=== PATIENT | female | born 1945 | race Caucasian/White ===

== ENCOUNTER 2018-06-12 16:30 | Inpatient (IN) ==
[2018-06-12 18:13] LABS: BASO# 0.01 X1000 (0.0-0.2); BASO% 0.1 % (0.0-0.8); EOS# 0.07 X1000 (0.0-0.7); EOS% 0.6 % (0.0-10.0); HEMATOCRIT 37.8 % (37.0-47.0); HEMOGLOBIN 12.9 g/dL (12.0-16.0); IMM GRAN# 0.03 X1000 (0.0-0.04); IMM GRAN% 0.2 % (0.0-0.5); LYMPH# 1.81 X1000 (1.2-3.4); LYMPH% 14.7 % (20.5-51.1); MCH 29.1 PG (27-31); MCHC 34.1 g/dL (33-37); MCV 85.3 FL (81-99); MONO# 1.23 X1000 (0.11-0.59); MPV 9.2 FL (7.4-10.4); NEUT# 9.13 X1000 (1.4-6.5); NEUT% 74.4 % (42.2-75.2); PLT 231 X1000 (130-400); RBC 4.43 XMIL (4.2-5.4); RDW 12.7 % (11.5-14.5); WBC 12.28 X1000 (4.8-10.8)
[2018-06-12] MEDS ORDERED: MORPHINE IV ONE (18:36)
[2018-06-12] MEDS ORDERED: ZOFRAN IV ONE (18:36)
--- NOTE | 2018-06-12 18:38 | PROVIDER DOCUMENTATION ---
This chart was entered by Jacqueline López Scribe, acting as scribe for Suzette Reina MD. HPI-Abdominal Pain/GI Problem - General Source: patient - History of Present Illness-ABD Nature of Presenting Problems: 73 yowf presents to the ed with c/o "I have a hernia and I want surgery to take it out today" . pt sts she is dr kilgore pt and she will not leave the hospital till hernia is removed. pt also c/o constipation, chills, nausea. pt has bags packed in room for extended stay. pt on exam is nontoxic in appearance Abdominal Pain Onset Location: reports: periumbilical Pain Radiation: reports: no radiation Quality of Pain: reports: aching Severity in ED: reports: moderate Onset/Duration: reports: other (years) Timing: reports: still present Activities at Onset: reports: light activity Exposure to sick contacts?: No Modifying Factors: improves with: nothing Associated Symptoms: reports: constipation, nausea. denies: back/neck pain, chest pain, cough, diarrhea, fatigue, fever/chills, headaches, shortness of breath, syncope, vomiting, weakness Last BM: last night Dark Stools Present?: reports: none noticed Rectal Bleeding: reports: none # of Diarrhea Episodes: 0 Rectal Pain: reports: none # of Vomiting Episodes: 0 Emesis Description: reports: none Bruising or Bleeding Gums?: No Similar Symptoms Previously?: Yes Recently seen or treated by another doctor?: Yes (has seen dr kilgore) <Suzette Reina - Last Filed: 06/12/18 18:37> <Rupesh Holloway - Last Filed: 06/16/18 09:26> - General Chief Complaint: Abdominal Pain Stated Complaint: N/V, BACK PAIN Time Seen by Provider: 06/12/18 17:05 Allergies/Adverse Reactions: Patient Allergies Allergy/AdvReac Type Severity Reaction Status Date / Time ciprofloxacin [From Cipro] Allergy Intermediate HIVES Verified 07/19/17 19:32 Sulfa (Sulfonamide Allergy Unknown Verified 07/19/17 19:32 Antibiotics) Home Medications: Home Medication List Medication Instructions Recorded Confirmed Last Taken Type Alprazolam [Xanax] 1 mg PO BID PRN PRN 08/03/13 06/12/18 07/18/17 08:00 History Fluticasone 50 Mcg Nasal [place] 1 spray MANDO DAILY #1 bottle 03/21/16 06/12/18 07/01/17 Rx [Flonase] Telmisartan 40 mg PO DAILY 07/22/17 06/12/18 Unknown History Omeprazole [Prilosec] 40 mg PO DAILY@0700 capsule 07/23/17 06/12/18 Unknown Rx Melatonin/Pyridoxine HCl (B6) 5 mg PO QHS PRN 06/12/18 06/13/18 Unknown History [Melatonin 5 mg Tablet] Review of Systems - Adult - REVIEW OF SYSTEMS - ADULT Constitutional: denies: chills, fever Eyes: reports: no symptoms reported Ears, Nose, Mouth & Throat: reports: no symptoms reported Cardiovascular: denies: chest pain, palpitations Respiratory: denies: cough, shortness of breath, wheezing Gastrointestinal: reports: see HPI, abdominal pain, constipation, nausea. denies: diarrhea, poor appetite, vomiting Genitourinary: reports: no symptoms reported Musculoskeletal: denies: back pain, neck pain Integumentary: reports: no symptoms reported Neurological: reports: no symptoms reported Psychiatric: reports: no symptoms reported Endocrine: reports: no symptoms reported Hematologic/Lymphatic: reports: no symptoms reported Allergic/Immunologic: reports: no symptoms reported All Other Systems: Reviewed and Negative <Suzette Reina - Last Filed: 06/12/18 18:37> Past History - Adult - PAST MEDICAL HISTORY-ADULT Review of Records: reports: Old Records Reviewed, Nursing Assessment Review, Medications Reviewed, Social history reviewed & non-contributory. Major Childhood Illnesses: reports: denies history Cardiovascular: reports: HTN, murmur Respiratory: reports: denies history Gastrointestinal: reports: diverticulosis, GERD, polyps, other (hernia) Obstetrical/Gynecological: reports: denies history Genitourinary: reports: denies history Musculoskeletal: reports: denies history Neurological: reports: denies history Psychiatric: reports: denies history Endocrine/Immune: reports: denies history Other Conditions: reports: denies history - PRIOR SURGERIES/PROCEDURES Surgical/Procedure History: reports: cholecystectomy, hysterectomy, other (sinus,gum repaired) - PRIOR HOSPITALIZATIONS Prior Hospitalizations: reports: none - IMMUNIZATION STATUS Childhood Immunizations: See Nurse Assessment Flu Vaccine: See Nurse Assessment - FAMILY HISTORY Family History: reviewed, not pertinent - SOCIAL HISTORY Smoking: denies Substance Use: denies Living Situation: family <Suzette Reina - Last Filed: 06/12/18 18:37> Physical Exam-General - PHYSICAL EXAM-ADULT Initial Vital Signs Reviewed: Yes - CONSTITUTIONAL General Appearance: appears well, alert, no apparent distress - EYES Eyes: PERRL/EOMI, pink conjunctivae - HEAD, EARS, NOSE, MOUTH & THROAT HENMT: normocephalic/atraumatic, moist mucous membranes, normal ENT inspection - NECK Neck: non-tender, full range of motion, supple, normal inspection - RESPIRATORY Respiratory: chest non-tender, lungs clear, normal breath sounds - CARDIOVASCULAR Cardiovascular: normal peripheral pulses, tachycardia (126) - GASTROINTESTINAL (ABDOMEN) Abdominal Exam: normal bowel sounds, soft, guarding, tenderness (umbilical), hernia (umbilical). negative: rigid, rebound - LYMPHATIC Lymphatic: no adenopathy - MUSCULOSKELETAL Back Exam: normal inspection, no CVA tenderness, no vertebral tenderness Extremity: normal range of motion, non-tender, normal gait, normal inspection - SKIN Integumentary: normal color, normal turgor, warm/dry - NEUROLOGIC Neurologic: grossly normal, no motor/sensory deficits - PSYCHIATRIC Psych/Mental Status: normal mood/affect, normal thought content, normal thought process, oriented x 3 <Suzette Reina - Last Filed: 06/12/18 18:37> Progress - PLAN OF CARE/RESULTS Progress/Plan/Lab Results: Vital Signs - 8 hr 06/12/18 16:46 Temperature 99.3 F Pulse Rate 126 H Respiratory Rate 20 Blood Pressure 156/72 O2 Sat by Pulse Oximetry 96 Orders Category Date Time Status Saline Loc DIRECTED Care 06/12/18 17:16 Active NPO Diet 06/12/18 17:[address] ABD/PELVIS W/PO AND IV CON [CT] Stat Exams 06/12/18 17:17 Ordered AMYLASE [CHEM] Stat Lab 06/12/18 17:16 Ordered CBC WITH ELECTRONIC DIFF [HEME] Stat Lab 06/12/18 17:16 Ordered COMPREHENSIVE METABOLIC PANEL [CHEM] Stat Lab 06/12/18 17:16 Uncollected LIPASE [CHEM] Stat Lab 06/12/18 17:[address] W/POSS RFLX CULT [URINALYSIS] Stat Lab 06/12/18 17:16 Uncollected Result Diagrams: 06/12/18 17:55 - CHANGE OF SHIFT REPORT (ED Provider) 1 Report Given and Care Transferred to:: Dr Holloway Time of Transfer: 19:00 Items Pending: CT/MRI Results <Suzette Reina - Last Filed: 06/12/18 18:37> - PLAN OF CARE/RESULTS Progress/Plan/Lab Results: Vital Signs - 8 hr 06/12/18 16:46 Temperature 99.3 F Pulse Rate 126 H Respiratory Rate 20 Blood Pressure 156/72 O2 Sat by Pulse Oximetry 96 Laboratory Results - last 24 hr 06/12/18 06/12/18 06/12/18 17:55 17:55 17:55 WBC 12.28 H RBC 4.43 Hgb 12.9 Hct 37.8 MCV 85.3 MCH 29.1 MCHC 34.1 RDW Std Deviation 12.7 Plt Count 231 MPV 9.2 Immature Gran % (Auto) 0.2 Neut % (Auto) 74.4 Lymph % (Auto) 14.7 [address] Lane % (Auto) 10.0 H Eos % (Auto) 0.6 Baso % (Auto) 0.1 Immature Gran # (Auto) 0.03 Neut # (Auto) 9.13 H Lymph # (Auto) 1.81 Lane # (Auto) 1.23 H Eos # (Auto) 0.07 Baso # (Auto) 0.01 Sodium 128 L Potassium 4.3 Chloride 91 L Carbon Dioxide 24 L Anion Gap 13 BUN 7 L Creatinine 0.4 L Estimated GFR/1.73 m2 > 60 BUN/Creatinine Ratio 18 Glucose 116 H Calculated Osmolality 256 Calcium 8.3 L Total Bilirubin 0.50 AST 64 H ALT 52 H Alkaline Phosphatase 99 Total Protein 6.8 Albumin 4.1 Globulin 3.0 Albumin/Globulin Ratio 2.0 Amylase 51 Lipase 25 Orders Category Date Time Status Admit - [facility] Routine AdmDCTranf 06/12/18 20:52 Active Activity - Up Ad Manjula ORDERED Care 06/12/18 20:52 Active Saline Loc DIRECTED Care 06/12/18 17:16 Active Vital Signs Order ORDERED Care 06/12/18 20:52 Active Clear Liquid Diet Diet 06/12/18 20:56 Active NPO Diet 06/12/18 17:[address] ABD/PELVIS W/PO AND IV CON [CT] Stat Exams 06/12/18 17:17 Completed AMYLASE [CHEM] Stat Lab 06/12/18 17:55 Completed CBC WITH ELECTRONIC DIFF [HEME] Stat Lab 06/12/18 17:55 Completed COMPREHENSIVE METABOLIC PANEL [CHEM] Stat Lab 06/12/18 17:55 Completed LIPASE [CHEM] Stat Lab 06/12/18 17:[address] W/POSS RFLX CULT [URINALYSIS] Stat Lab 06/12/18 20:43 Received Metronidazole 500 mg/Ns [Flagyl 500 mg/Ns] Med 06/12/18 21:30 Active 500 mg in 100 ml IV Q6H Morphine Med 06/12/18 20:37 Active 2 mg IV Q2H PRN PRN Morphine Med 06/12/18 18:36 Discontinued 4 mg IV NOW ONE Ondansetron [Zofran] Med 06/12/18 18:36 Discontinued 4 mg IV NOW ONE Piperacillin/Tazobactam [Zosyn] 3.375 gm Med 06/12/18 20:45 Active 0.9% Sodium Chloride Inj [Ns] 50 ml IV Q6H Result Diagrams: 06/16/18 00:50 06/16/18 07:44 - REASSESSMENT Reassessment #1 Time Reassessed: 20:59 Status: unchanged (CT sonsistent with acute diverticulitis, similar to previous hospitalization) - CT/MRI 1 CT Study: Abdomen, Pelvis ( INDICATION: abdominal pain COMPARISON: 07/22/2017 FINDINGS: There is a moderate stable hiatal hernia. There is some linear atelectasis in the lung bases. Stable cholecystectomy clips. There is severe inflammation of the sigmoid colon surrounding an area of diverticula. This is nearly identical to the prior exam. No drainable fluid collection or free air. There is mild constipation. No bowel obstruction. Uterus is absent. Urinary bladder and rectum are normal. There are moderate degenerative changes of the spine. No acute or suspicious bony lesion. IMPRESSION: Severe acute diverticulitis of the sigmoid colon. Recommend follow-up CT after the patient has resolved. This exam was performed using automated exposure control, adjustment of mA or kV according to patient size, and/or use of iterative reconstruction technique Electronically signed by Guero Hunt 06/12/2018 8:06 PM) - CONSULTS/PCP/HOSPITALIST Notification #1 *Consult/PCP/Hospitalist*: Dr Lott Time Discussed: 21:01 Consult Disposition: Admit <Rupesh Holloway - Last Filed: 06/16/18 09:26> Departure - Departure Certified Medical Emergency: Emergent <Suzette Reina - Last Filed: 06/12/18 18:37> - Departure Date of Disposition Decision: 06/12/18 Time of Disposition Decision: 20:00 - Critical Care Note This patient required my direct & personal management of CC.: No <Rupesh Holloway - Last Filed: 06/16/18 09:26> - Departure DIAGNOSIS: Abdominal pain Disposition: ADMITTED INPATIENT 09 Condition: Stable Attestation - Physician/ AIYANA Attestation Patient care was provided by Advanced Practice Provider:: No The physician spent face to face time with patient:: Yes Advanced Practice Provider documentation review:: Supervising physician onsite and consulted in the evaluation and care of this patient. The physician did have a face to face encounter with the patient. <Suzette Reina - Last Filed: 06/12/18 18:37> - Physician/ AIYANA Attestation The physician spent face to face time with patient:: Yes Advanced Practice Provider documentation review:: Supervising physician onsite and consulted in the evaluation and care of this patient. The physician did have a face to face encounter with the patient. <Rupesh Holloway - Last Filed: 06/16/18 09:26> This chart was documented by the indicated scribe, (Jacqueline López Scribe) and accurately reflects the services I performed and decisions made by Nuno glynn Mai Huu, MD, as attested by the provider's signature.
[2018-06-12 18:56] LABS: AGAP 13; ALBUMIN 4.1 g/dL (3.5-5.0); ALKALINE PHOSPHATASE 99 U/L (32-104); BUN 7 mg/dL (8-22); CALCIUM 8.3 mg/dL (8.8-10.2); CHLORIDE 91 mmol/L (98-107); COSMO 256; CREATININE 0.4 mg/dL (0.5-0.9); ESTIMATED GFR > 60; GLUCOSE 116 mg/dL (70-104); GOT 64 U/L (10-30); GPT 52 U/L (10-36); LIPASE 25 U/L (13-60); POTASSIUM 4.3 mmol/L (3.5-5.1); SODIUM 128 mmol/L (136-145); TCO2 24 mmol/L (25-35); TOTAL PROTEIN 6.8 g/dL (6.3-8.3)
--- NOTE | 2018-06-12 20:09 | Diag Imaging Result Doc PS360 ---
CT ABD/PELVIS W/PO AND IV CON - 06/12/2018 INDICATION: abdominal pain COMPARISON: 07/22/2017 FINDINGS: There is a moderate stable hiatal hernia. There is some linear atelectasis in the lung bases. Stable cholecystectomy clips. There is severe inflammation of the sigmoid colon surrounding an area of diverticula. This is nearly identical to the prior exam. No drainable fluid collection or free air. There is mild constipation. No bowel obstruction. Uterus is absent. Urinary bladder and rectum are normal. There are moderate degenerative changes of the spine. No acute or suspicious bony lesion. IMPRESSION: Severe acute diverticulitis of the sigmoid colon. Recommend follow-up CT after the patient has resolved. This exam was performed using automated exposure control, adjustment of mA or kV according to patient size, and/or use of iterative reconstruction technique Electronically signed by Guero Hunt 06/12/2018 8:06 PM
[2018-06-12] MEDS ORDERED: MORPHINE IV PRN (20:37)
[2018-06-12] MEDS ORDERED: ZOSYN 3.375 GM in NS 50 ML IV SCH (20:45)
[2018-06-12 21:01] LABS: BILIRUBIN URINE NEGATIVE (NEGATIVE); BLOOD URINE NEGATIVE (NEGATIVE); CLARITY CLEAR (CLEAR); COLOR YELLOW; GLUCOSE URINE NEGATIVE (NEGATIVE); KETONE URINE NEGATIVE (NEGATIVE); LEUKOCYTES URINE TRACE (NEGATIVE); NITRITE URINE NEGATIVE (NEGATIVE); PROTEIN URINE NEGATIVE (NEGATIVE); URINE SOURCE CLEAN CATCH; UROBILINOGEN URINE NORMAL
[2018-06-12 21:02] LABS: URINE BACTERIA NEGATIVE /HFP; URINE EPITHELIAL CELLS <10 /HPF (<10); URINE RBC <10 /HPF (<10); URINE WBC <10 /HPF (<10)
[2018-06-12 21:03] LABS: URINE CAST NONE SEEN /LPF; URINE CRYSTAL NONE SEEN /HPF; URINE SMALL ROUND CELLS TRANSITIONAL PRESENT; URINE YEAST NONE SEEN /HPF
[2018-06-12] MEDS ORDERED: FLAGYL 500 MG/NS 500 MG/100 ML IVPB IV SCH (21:30)
[2018-06-12] MEDS ORDERED: PRILOSEC PO ONE (22:22)
[2018-06-12] MEDS: MORPHINE IV PRN (23:04)
[2018-06-13] MEDS: MORPHINE IV PRN ×6 (01:11→22:12)
[2018-06-13] MEDS: XANAX PO SCH ×3 (01:12→21:49)
[2018-06-13] MEDS: FLAGYL 500 MG/NS 500 MG/100 ML IVPB IV SCH ×4 (01:13→22:12)
[2018-06-13] MEDS: ZOSYN 3.375 GM in NS 50 ML IV SCH ×3 (04:30→17:28)
[2018-06-13] MEDS ORDERED: FLONASE NAS ONE ×2 (07:00→09:00)
[2018-06-13] MEDS ORDERED: NS 500 ML IV ONE (08:13)
[2018-06-13] MEDS ORDERED: NS 1,000 ML IV SCH ×2 (08:15→15:15)
[2018-06-13] MEDS ORDERED: MICARDIS PO ONE (09:10)
--- NOTE | 2018-06-13 09:57 | EKG Report ---
Test Performed on : 06/13/2018 09:27:32 AM Test Reason : palpitations Blood Pressure : / mmHG Vent. Rate : 109 BPM Atrial Rate : 109 BPM P-R Int : 162 ms QRS Dur : 078 ms QT Int : 320 ms P-R-T Axes : 043 054 045 degrees QTc Int : 430 ms Sinus tachycardia. Otherwise normal ECG When compared with ECG of 09-APR-2007 17:10, No significant change was found Confirmed by George Landis MD ([id number]) on 06/15/2018 7:41:15 AM
[2018-06-13] MEDS: PROTONIX IV SCH (11:03)
--- NOTE | 2018-06-13 15:24 | PROGRESS NOTE ---
DATE: 06/13/2018 A 73-year-old female who presented to the emergency room last night complaining of belly pain. She has a history of diverticular disease. Last night she had a temperature of 99.3, a pulse of 126, blood pressure 156/72, and respiratory rate of 20. O2 saturation was 96% on room air. While she was in the ER she had a white count of 12,280 with a normal differential. Hematocrit was 37.8 and platelet count was 231,000. Chemistries showed sodium of 128, potassium 4.3, chloride 91, CO2 24, BUN 7, creatinine 0.4, GFR greater than 60, glucose 116, calcium 8.3, total bilirubin 0.5, AST 64, ALT 52, alkaline phosphatase 99, total protein 6.8, albumin 4.1, globulin 3, amylase 51, and lipase 25. Urinalysis was negative. Her imaging studies of abdomen and pelvis read by Dr. Hunt showed a stable hiatal hernia and there was some linear atelectasis in the lung bases; cholecystectomy clips; severe inflammation of the sigmoid colon surrounding an area of diverticula, this is nearly identical to a prior exam. No drainable fluid collection or free air. There is mild constipation. No bowel obstruction. Uterus is absent. Urinary bladder and rectum are normal. A moderate degree of degenerative changes of the spine are noted, no suspicious bony lesions. Initial impression was: Severe acute diverticulitis of the sigmoid colon. She was placed on antibiotic therapy which included Zosyn IV q six hours, omeprazole, metronidazole 500 IV q six hours, and she was placed on Zofran and pain medications. Currently, her vital signs: Temperature is 98.4, pulse was 123, respiratory rate was 20, blood pressure 126/75, O2 saturation was 97%. Earlier, she had rapid heart rate of 126 and 123. Her blood pressure at 8:00 a.m. this morning was 88/50 and she was given a fluid bolus. She is still complaining of intense pain. We will continue to replenish her fluids. Her chemistries will be redrawn. cc: George Landis MD
[2018-06-13 15:34] LABS: BASO# 0.01 X1000 (0.0-0.2); BASO% 0.1 % (0.0-0.8); EOS# 0.11 X1000 (0.0-0.7); EOS% 1.1 % (0.0-10.0); HEMATOCRIT 37.1 % (37.0-47.0); HEMOGLOBIN 12.6 g/dL (12.0-16.0); IMM GRAN# 0.01 X1000 (0.0-0.04); IMM GRAN% 0.1 % (0.0-0.5); LYMPH# 1.56 X1000 (1.2-3.4); MCH 29.6 PG (27-31); MCV 87.1 FL (81-99); MONO# 0.94 X1000 (0.11-0.59); MONO% 9.6 % (1.7-9.3); MPV 9.4 FL (7.4-10.4); NEUT# 7.12 X1000 (1.4-6.5); NEUT% 73.1 % (42.2-75.2); PLT 206 X1000 (130-400); RBC 4.26 XMIL (4.2-5.4); RDW 12.8 % (11.5-14.5); WBC 9.75 X1000 (4.8-10.8)
[2018-06-13 15:51] LABS: AGAP 11; ALBUMIN 3.6 g/dL (3.5-5.0); ALKALINE PHOSPHATASE 155 U/L (32-104); BUN 10 mg/dL (8-22); CALCIUM 7.7 mg/dL (8.8-10.2); CHLORIDE 94 mmol/L (98-107); COSMO 262; CREATININE 0.6 mg/dL (0.5-0.9); ESTIMATED GFR > 60; GLUCOSE 108 mg/dL (70-104); GOT 309 U/L (10-30); GPT 368 U/L (10-36); POTASSIUM 4.3 mmol/L (3.5-5.1); SODIUM 131 mmol/L (136-145); TCO2 26 mmol/L (25-35); TOTAL PROTEIN 6.4 g/dL (6.3-8.3)
[2018-06-13] MEDS: NS 1,000 ML IV SCH (21:49)
[2018-06-14] MEDS: ZOSYN 3.375 GM in NS 50 ML IV SCH ×4 (01:50→17:20)
[2018-06-14] MEDS: MORPHINE IV PRN ×4 (02:10→21:12)
[2018-06-14] MEDS: NS 1,000 ML IV SCH ×3 (02:10→15:50)
--- NOTE | 2018-06-14 02:14 | GENERAL SURGERY CONSULTATION ---
DATE: 06/14/2018 REASON FOR CONSULTATION: Diverticulitis with possible perforation. HISTORY OF PRESENT ILLNESS: This is a 73-year-old female with a 1-week history of mid abdominal pain around the umbilicus, also radiating over to her left lower quadrant and left side. It is worsened with coughing and walking. It is lessened with lying still. She says the pain comes and goes. It has been associated with some nausea and vomiting as well as fever. She has been passing a lot of gas, but has not had a bowel movement in several days. PAST MEDICAL HISTORY: 1. Multiple episodes of diverticulitis over the last few years, requiring antibiotics. 2. Hyperlipidemia. 3. Hypertension. 4. Anxiety. 5. Chronic constipation. PAST SURGICAL HISTORY: 1. Cholecystectomy. 2. Hysterectomy. 3. Sinus surgery. ALLERGIES: Ciprofloxacin and sulfa. SOCIAL HISTORY: Negative for tobacco, alcohol or illicit drug use. FAMILY HISTORY: Reviewed and noncontributory. MEDICATIONS AT HOME: Xanax, Flonase, telmisartan, omeprazole, melatonin. CURRENT MEDICATIONS: Notable for Zosyn, Flagyl, Protonix REVIEW OF SYSTEMS: Ten systems reviewed and negative, except as noted above. PHYSICAL EXAMINATION: Vital Signs: Temperature currently 97.6, earlier this evening 101.3, pulse 85, respirations 19, blood pressure 105/55, O2 saturation 100%. General: Well- developed, elderly female who looks her stated age, in no acute distress. HEENT: Normocephalic, atraumatic. Extraocular muscles intact. Pupils equal, round, reactive to light. Sclerae anicteric. Moist mucous membranes. Hearing grossly normal. Neck: Supple. No thyromegaly. Cardiovascular: Regular rate and rhythm. Respiratory: Bilateral equal breath sounds. No work of breathing. Gastrointestinal: Soft, mildly distended, tender across the lower abdomen. No rebound or guarding. No organomegaly or mass. No hernias. Extremities: No clubbing, cyanosis, or edema. Skin: Warm and dry. No rash. Musculoskeletal: Moves all extremities equally and well. LABORATORY: White blood cell count 12.3 on admission, 9.75 yesterday morning, hemoglobin 12.6, hematocrit 37, platelet count 206,000. Sodium 131, potassium 4.3, chloride 94, CO2 of 26, BUN 10, creatinine 0.6. Glucose 108, AST 309, ALT 368, alkaline phosphatase 155, total bilirubin 1.4, serum lactate 0.5. IMAGING: CT of abdomen and pelvis was reviewed and shows severe sigmoid diverticulitis. She also has a hiatal hernia. There is significant fluid filling the colon and there is perhaps some extraluminal gas bubbles in the sigmoid colon area, but no large volume free air or free fluid. ASSESSMENT AND PLAN: A 73-year-old female with recurrent sigmoid diverticulitis. I agree with continuing Zosyn and Flagyl for now; she does not have an acute abdomen. Hopefully, she will recover from this nonoperatively for the time being, as she has in the past, but I would plan a minimally invasive sigmoidectomy in the near future, after we can prep her bowel, so I want her to follow up with me after discharge for surgical plans as she continues to have recurrent bouts of this. My partners will round on her during my absence next week. We will go ahead and start her on a liquid diet and see how she does over the weekend. cc: MD George Ron MD MTDD
[2018-06-14] MEDS: FLAGYL 500 MG/NS 500 MG/100 ML IVPB IV SCH ×4 (04:28→21:12)
[2018-06-14 07:22] LABS: BASO# 0.02 X1000 (0.0-0.2); BASO% 0.2 % (0.0-0.8); EOS# 0.07 X1000 (0.0-0.7); EOS% 0.8 % (0.0-10.0); HEMATOCRIT 37.1 % (37.0-47.0); HEMOGLOBIN 12.5 g/dL (12.0-16.0); IMM GRAN# 0.01 X1000 (0.0-0.04); IMM GRAN% 0.1 % (0.0-0.5); LYMPH% 14.3 % (20.5-51.1); MCH 29.8 PG (27-31); MCHC 33.7 g/dL (33-37); MCV 88.5 FL (81-99); MONO# 0.77 X1000 (0.11-0.59); MONO% 8.5 % (1.7-9.3); MPV 9.6 FL (7.4-10.4); NEUT% 76.1 % (42.2-75.2); PLT 169 X1000 (130-400); RBC 4.19 XMIL (4.2-5.4); RDW 12.9 % (11.5-14.5); WBC 9.07 X1000 (4.8-10.8)
[2018-06-14 07:35] LABS: AGAP 13; ALBUMIN 3.5 g/dL (3.5-5.0); ALKALINE PHOSPHATASE 146 U/L (32-104); BUN 8 mg/dL (8-22); CALCIUM 7.6 mg/dL (8.8-10.2); CHLORIDE 97 mmol/L (98-107); COSMO 264; CREATININE 0.5 mg/dL (0.5-0.9); ESTIMATED GFR > 60; GLUCOSE 86 mg/dL (70-104); GOT 166 U/L (10-30); GPT 254 U/L (10-36); POTASSIUM 4.3 mmol/L (3.5-5.1); SODIUM 133 mmol/L (136-145); TCO2 23 mmol/L (25-35)
[2018-06-14] MEDS: SODIUM CHLORIDE 0.9% INJ SCH (09:29)
[2018-06-14] MEDS: XANAX PO SCH ×2 (09:29→21:12)
[2018-06-14] MEDS: PROTONIX IV SCH (09:29)
[2018-06-14] MEDS ORDERED: BLISTEX MEDICATED BERRY LIP BALM TOP PRN (11:49)
[2018-06-14] MEDS: OFIRMEV 1000 MG/ISOTONIC SOLN 1,000 MG/100 ML BOTTLE IV PRN (13:36)
[2018-06-14] MEDS: MIRALAX PO SCH (17:20)
[2018-06-14] MEDS: COLACE PO SCH (17:20)
[2018-06-15] MEDS: ZOSYN 3.375 GM in NS 50 ML IV SCH ×4 (00:33→21:27)
[2018-06-15] MEDS: NS 1,000 ML IV SCH ×3 (00:34→16:11)
[2018-06-15] MEDS: MORPHINE IV PRN ×2 (04:12→21:24)
[2018-06-15] MEDS: FLAGYL 500 MG/NS 500 MG/100 ML IVPB IV SCH ×4 (04:12→20:33)
--- NOTE | 2018-06-15 08:40 | PROGRESS NOTE ---
DATE: 06/15/2018 Jennifer Larsen is a 73-year-old, white female who has been admitted with acute cholecystitis and has been seen by Dr. King. She has had several episodes of sigmoid diverticulitis and we feel that she will need a colon resection hopefully electively she is on IV antibiotics at this time. OBJECTIVE: Vital Signs: Her heart rate is 88, blood pressure 124/59, O2 saturation 98% on 2 L nasal cannula O2. She is afebrile. Abdomen: She still has some discomfort in the left lower quadrant but she states it is better than when she was admitted. She is having she has had a bowel movement. She is on a clear liquid diet now. PLAN: I feel that clinically she is improving on IV antibiotics with her sigmoid diverticulitis. I would advance her diet as she clinically improves. She will need follow up in our outpatient offices to discuss elective sigmoid colon resection. cc: MD George Fajardo MD
[2018-06-15] MEDS: XANAX PO SCH ×2 (10:02→21:24)
[2018-06-15] MEDS: COLACE PO SCH (10:04)
[2018-06-15] MEDS: SODIUM CHLORIDE 0.9% INJ SCH (10:04)
[2018-06-15] MEDS: PROTONIX IV SCH (10:04)
[2018-06-15] MEDS: MIRALAX PO SCH (10:05)
[2018-06-16] MEDS ORDERED: LANOXIN IV ONE ×3 (00:32→06:48)
[2018-06-16] MEDS ORDERED: CARDIZEM IV ONE (00:34)
[2018-06-16] MEDS ORDERED: LANOXIN ONE (00:39)
[2018-06-16] MEDS ORDERED: CARDIZEM ONE ×3 (00:40→01:04)
[2018-06-16] MEDS ORDERED: CARDIZEM 100 MG/NS 100 MG/100 ML IVPB IV SCH (01:00)
[2018-06-16] MEDS ORDERED: NS 100 ML ONE (01:02)
[2018-06-16 01:03] LABS: BASO# 0.01 X1000 (0.0-0.2); BASO% 0.2 % (0.0-0.8); EOS# 0.15 X1000 (0.0-0.7); EOS% 2.3 % (0.0-10.0); HEMATOCRIT 33.8 % (37.0-47.0); HEMOGLOBIN 11.5 g/dL (12.0-16.0); IMM GRAN# 0.01 X1000 (0.0-0.04); IMM GRAN% 0.2 % (0.0-0.5); LYMPH# 1.67 X1000 (1.2-3.4); LYMPH% 25.9 % (20.5-51.1); MCH 29.8 PG (27-31); MCV 87.6 FL (81-99); MONO# 0.56 X1000 (0.11-0.59); MONO% 8.7 % (1.7-9.3); MPV 10.1 FL (7.4-10.4); NEUT# 4.04 X1000 (1.4-6.5); NEUT% 62.7 % (42.2-75.2); PLT 173 X1000 (130-400); RBC 3.86 XMIL (4.2-5.4); RDW 12.4 % (11.5-14.5); WBC 6.44 X1000 (4.8-10.8)
[2018-06-16 02:01] LABS: MAGNESIUM 1.7 mg/dL (1.5-2.7)
--- NOTE | 2018-06-16 02:06 | PROGRESS NOTE ---
DATE: 06/16/2018 Jennifer Larsen is a patient who is in the hospital for sigmoid diverticulitis and hyponatremia. She has been on broad spectrum antibiotics. Doing well other than left lower quadrant pain. Tonight, she entered into a rapid irregular narrow-paced rhythm atrial fibrillation at about 186. No history of the same. We have given her digoxin 0.25 and gave her Cardizem 10 and beginning to start a drip on her, moving her to the intensive care unit. We have pending labs. cc: George Landis MD
--- NOTE | 2018-06-16 02:08 | PROGRESS NOTE ---
DATE: 06/15/2018 Jennifer Larsen is hospitalized here for diverticulitis. Her belly is soft. Vital signs have been stable. Temperature 98, pulse rate 87, blood pressure 144/86, O2 saturation 99% on room air. Abdomen some tenderness, some plus/minus fullness in the right upper quadrant, however. She has no growth in her urine microbiology. We will continue IV antibiotics in anticipation of repeating the scan. cc: George Landis MD
[2018-06-16] MEDS ORDERED: MAGNESIUM SULFATE 1 GM/D5W 1 GM/100 ML IVPB IV ONE (02:38)
[2018-06-16] MEDS: NS 1,000 ML IV SCH ×2 (04:07→10:25)
[2018-06-16] MEDS: FLAGYL 500 MG/NS 500 MG/100 ML IVPB IV SCH ×2 (04:16→10:25)
--- NOTE | 2018-06-16 04:45 | HISTORY AND PHYSICAL ---
HISTORY OF PRESENT ILLNESS: Patient is a 73-year-old female who presented to the emergency room complaining of a hernia and that she was interested in getting it removed today. Patient has also been complaining of constipation, chills, nausea. She was reportedly nontoxic in appearance, demanded to stay and wanted the hernia removed. Her pain is in the periumbilical area that has been bothering her in an aching fashion, nonradiating for years. She gets constipated and frequently nauseated. Denies any vomiting, any diarrhea, melena or hematochezia. Her last bowel movement was prior to presenting to the ER the preceding night. She denies any nausea or vomiting. She is allergic to sulfa drugs. In the ER, she had a temperature of 99.3, pulse was 126, respiratory rate was 20, BP was 156/72, O2 saturation was 96%. Her physical exam had tenderness in the umbilical region. LABORATORY STUDIES: She had a white count drawn which was 12, 280. Hematocrit was 37.8. Platelet count was 231. Her sodium on admission was 128, potassium 4.3, chloride 91, CO2 of 24, BUN 7, creatinine 0.4. GFR greater than 60. BUN/creatinine ratio 18. Glucose 116. Slight elevation of AST 64 and ALT 52. Amylase and lipase were normal. She did have CT of the abdomen and pelvis, showed a diverticulitis acute in the left lower quadrant, a hiatal hernia. This is similar in appearance of her previous bout of diverticulitis 07/22/2017. Impression was severe acute diverticulitis of the sigmoid colon. PAST MEDICAL HISTORY: She has had a previous cholecystectomy, hysterectomy and sinus and gum therapy. She has a history of diverticulosis, GERD. SOCIAL HISTORY: She is a nonsmoker and lives with her family. REVIEW OF SYSTEMS: Constitutional: She denies any significant weight gain or weight loss. She has had no significant history of strokes, CVAs or migraines. Ears/nose/throat: No pharyngitis, otitis, sinusitis. Cardiovascular: Hypertension and a murmur. No MT. No atrial fibrillation. Respiratory: No significant wheezing, asthma. Gastrointestinal: Frequent issues with hernias, diverticulosis, GERD, previous diverticulitis. Genitourinary: Dysuria, hematuria, polyuria not present. Musculoskeletal: No mechanical pains. Neurological: No TIA, CVA, headaches. Psychiatric: Kind of anxious about her health and no diabetes or thyroid disease. PHYSICAL EXAMINATION: GENERAL: On admission, she was alert and oriented, no apparent distress. EYES/EARS/NOSE/THROAT: Negative. NECK: Supple without thyromegaly or lymphadenopathy. CHEST: Bilaterally clear breath sounds. CARDIOVASCULAR: Regular rhythm and rate, tachycardia at 126. ABDOMEN: Soft. Some guarding and fullness in the umbilical area primarily on the right upper side. She was tender in the left lower quadrant most definitely. Had some mild CVA tenderness. MUSCULOSKELETAL: Negative. SKIN: Clear. NEUROLOGICAL: Exam was intact. ADMITTING DIAGNOSIS: Diverticulitis. She is going to be treated and we will consult Surgery. cc: George Landis MD MTDD
[2018-06-16] MEDS: ZOSYN 3.375 GM in NS 50 ML IV SCH ×2 (04:59→10:23)
[2018-06-16] MEDS: OFIRMEV 1000 MG/ISOTONIC SOLN 1,000 MG/100 ML BOTTLE IV PRN (05:15)
[2018-06-16] MEDS ORDERED: CORDARONE 360 MG/D5W 360 MG/200 ML IV.SOLN IV ONE ×2 (06:48→07:13)
[2018-06-16] MEDS ORDERED: LEVOPHED 8 MG in D5 1/2 NS 250 ML IV SCH (07:00)
[2018-06-16] MEDS ORDERED: LOPRESSOR ONE (07:04)
[2018-06-16] MEDS ORDERED: LOPRESSOR IV ONE (07:09)
[2018-06-16] MEDS ORDERED: LOPRESSOR IV PRN (07:10)
--- NOTE | 2018-06-16 07:28 | Diag Imaging Result Doc PS360 ---
CHEST-PORTABLE - 06/16/2018 INDICATION: new onset atrial fibrillation COMPARISON: 07/19/2017 FINDINGS: There are extensive diffuse bilateral interstitial infiltrates compatible with pulmonary edema. Heart size is top normal. No pneumothorax or significant pleural effusion. IMPRESSION: Extensive pulmonary edema. Normal heart size. Electronically signed by Guero Hunt 06/16/2018 7:25 AM
[2018-06-16 07:48] LABS: BE -6.4 mmoll (-3.0-3.0); BLOOD TYPE ARTERIAL; HCO3-(ACT) 19.8 mmoll (20.0-26.0); METHB 1.2 % (0.0-1.5); O2(CT) 15.7 mL/dL (15.0-23.0); O2HB 92.5 % (95.0-99.0); PCO2(98.6) 31 mmHg (35-45); PO2(98.6) 59 mmHg (60-100); SAMPLE BLOOD; SAO2 95.6 % (95.0-100.0); THB 12.1 g/dL (11.5-17.4); pH(98.6) 7.37 (7.35-7.45)
[2018-06-16 07:51] LABS: MODALITY VENTIMASK
[2018-06-16 07:52] LABS: ALLEN TEST YES
[2018-06-16 08:34] LABS: ESTIMATED GFR > 60
[2018-06-16 08:39] LABS: AGAP 18; ALBUMIN 3.1 g/dL (3.5-5.0); ALKALINE PHOSPHATASE 97 U/L (32-104); BUN 3 mg/dL (8-22); CALCIUM 7.1 mg/dL (8.8-10.2); CHLORIDE 101 mmol/L (98-107); COSMO 267; CREATININE 0.4 mg/dL (0.5-0.9); GLUCOSE 111 mg/dL (70-104); GOT 38 U/L (10-30); GPT 101 U/L (10-36); POTASSIUM 3.6 mmol/L (3.5-5.1); SODIUM 135 mmol/L (136-145); TCO2 16 mmol/L (25-35); TOTAL PROTEIN 5.8 g/dL (6.3-8.3)
[2018-06-16 09:18] LABS: BILIRUBIN URINE NEGATIVE (NEGATIVE); BLOOD URINE NEGATIVE (NEGATIVE); CLARITY CLEAR (CLEAR); COLOR YELLOW; GLUCOSE URINE NEGATIVE (NEGATIVE); KETONE URINE 3+(Large) mg/dL (NEGATIVE); LEUKOCYTES URINE TRACE (NEGATIVE); NITRITE URINE NEGATIVE (NEGATIVE); PROTEIN URINE NEGATIVE (NEGATIVE); UROBILINOGEN URINE NORMAL
[2018-06-16 09:25] LABS: URINE RBC <10 /HPF (<10)
[2018-06-16 09:26] LABS: URINE EPITHELIAL CELLS <10 /HPF (<10); URINE SOURCE CATH
--- NOTE | 2018-06-16 09:26 | PROGRESS NOTE ---
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 She is admitted for diverticulitis, on broad spectrum antibiotics. DIAGNOSTIC DATA: Her laboratory today shows her white count is improved to 9000, hematocrit 37, platelet count 169. Her electrolytes show sodium 131, potassium 4.3, chloride 97, CO2 is 23, BUN is 8, creatinine 0.5, GFR greater than 60, BUN to creatinine ratio of 16, magnesium not drawn, calcium 7.6, but it has been low since she has been here. Her albumin has held its own and ranged between 3.5 and 4.1. Her LFTs have gotten better. They had a brief spike on 06/13/2018, and now bilirubin is down to 1.3, still elevated, but AST has dropped from 309 to 166, and ALT dropped from 368 to 254. Alkaline phosphatase went from 155 to 146. She continues to have some pain in her left lower quadrant, being followed by Surgery. We will continue her antibiotics and follow Surgery's lead on her subsequent CT of the abdomen and/or surgery. cc: George Landis MD
[2018-06-16] MEDS ORDERED: CORDARONE 360 MG/D5W 360 MG/200 ML IV.SOLN IV PRN (09:46)
[2018-06-16] MEDS: PROTONIX IV SCH ×2 (10:23→23:01)
[2018-06-16] MEDS: XANAX PO SCH (10:24)
[2018-06-16] MEDS: SODIUM CHLORIDE 0.9% INJ SCH (10:24)
[2018-06-16] MEDS: COLACE PO SCH (10:25)
[2018-06-16] MEDS: MIRALAX PO SCH (11:37)
[2018-06-16] MEDS ORDERED: CORDARONE 360 MG/D5W 360 MG/200 ML IV.SOLN IV SCH (12:49)
[2018-06-16] MEDS ORDERED: ZOSYN 3.375 GM in NS 50 ML IV SCH (14:45)
[2018-06-16] MEDS ORDERED: NS 1,000 ML IV SCH (15:00)
--- NOTE | 2018-06-16 15:31 | PROGRESS NOTE ---
DATE: 06/16/2018 SUBJECTIVE: This patient is still complaining of some abdominal pain, mostly at the level of the left lower quadrant. She is not complaining of fever or chills at this moment. Today in the morning at 4 a.m. she had a temperature of 101.4 degrees and at some point today also earlier she received some pressors because her blood pressure was dropping. It looks like she started having an episode of atrial fibrillation with RVR. She received multiple treatments with amiodarone, digoxin, metoprolol. At this moment this patient is in normal sinus rhythm. She is not complaining of chest pain or shortness of breath. Cardiology Department has been notified and they will evaluate this patient. OBJECTIVE: Vital Signs: At this moment, temperature 97.4 degrees, pulse on the monitor 85, respiratory rate 22, blood pressure 143/62, oxygen saturation 98 on 3 L of nasal cannula. HEENT: Head normocephalic. No trauma. PERRLA. Neck: Supple. No JVD. No masses. Central trachea. Chest: Clear to auscultation. No wheezing. No rales. Abdomen: Soft. Tenderness to palpation at the level of the left lower quadrant and periumbilical area. Positive bowel sounds. No signs of peritoneal irritation. Extremities: No edema. No clubbing. No cyanosis. Neurological: The patient is alert and oriented x3. No focal neurological deficits. LABORATORY: WBC 6.4, hemoglobin 11.5, hematocrit 33.8, platelets 173,000. Sodium 135, potassium 3.6, chloride 101, bicarbonate 16, BUN 3, creatinine 0.4, glucose 111, calcium 7.1, total bilirubin 0.4, AST 38, ALT 101, alkaline phosphatase 97. Troponin negative x2; first result 0.01, second result 0.06. I will ask for a new set of troponins right now. She has been placed on antibiotics, Zosyn, IV fluids, Protonix. Cardiology Department is actually evaluating this patient right now. Probably she will be on medication to control the heart rate and probably blood thinners. Will continue to monitor this patient closely. ASSESSMENT AND PLAN: 1. Severe acute diverticulitis of the sigmoid colon. I will continue with a single agent of antibiotics, Zosyn. I will monitor this patient closely. It looks like she has been having this kind of problem before. Surgery Department on board and probably we will request an evaluation by Gastroenterology Department in the future. 2. New onset atrial fibrillation with rapid ventricular response. At this moment the rate is controlled and actually she is in normal sinus rhythm. Cardiology Department at this moment is evaluating this patient and probably they will put this patient on medication to control the heart rate and probably anticoagulation. 3. Elevated liver function tests, probably related to shock liver. Apparently this patient was having septic shock and she received some pressors today. At this moment the blood pressure is stable. We will monitor for now. 4. Sepsis. I am not quite sure if this patient really had septic shock. She was placed on vasopressors today for a little period of time. At this moment the blood pressure is stable. On the monitor right now it is 143/62. I am not quite sure if this decrease of the blood pressure was related to her atrial fibrillation with RVR, but now it is controlled. Upon admission though, this patient was also tachycardic, she had leukocytosis, lactate level has been normal, and she has a source of infection, so probably this patient had sepsis or an a early sepsis, but now seems to be more stable. 5. Gastrointestinal prophylaxis with proton pump inhibitors. 6. Deep vein thrombosis prophylaxis, likely this patient will be will be placed on blood thinners by Cardiology Department. 7. Recent x-ray showed extensive diffuse bilateral interstitial infiltrate with probable pulmonary edema. I have stopped the IV fluids for now. She has been placed on a diet. I will continue with antibiotics and I will monitor. 8. Hyponatremia, resolved. CRITICAL CARE TIME: 40 minutes. cc: Jamal Corley MD
--- NOTE | 2018-06-16 15:32 | CARDIOLOGY CONSULTATION ---
DATE: 06/16/2018 CHIEF COMPLAINT: Abdominal pain. HISTORY OF PRESENT ILLNESS: Ms. Larsen is a 73-year-old, white female who presented to the emergency room with complaints of belly pain and is apparently having recurrent issues with diverticulitis recently. She has no history of atrial fibrillation. She does have a history of hypertension. She denies any chest pain but has had issues with palpitations this morning. She was noted to be in rapid atrial fibrillation. Was given some Lopressor as well as amiodarone and digoxin. She since has converted to a sinus rhythm. She has no pain complaints today, chest pain complaints presently but does have some diffuse abdominal symptoms. She has no nausea or vomiting presently. PAST MEDICAL HISTORY: 1. Significant for diverticulosis. 2. Reflux disease. 3. Hypertension. SOCIAL HISTORY: She is not a smoker. FAMILY HISTORY: Hypertension. REVIEW OF SYSTEMS: A 10 system review of systems is negative except for those things mentioned in the HPI. PHYSICAL EXAMINATION: Vital Signs: The patient had a temperature of 101.7 degrees on the 15th and 101.4 this morning at 4 a.m. General: She is in no acute distress. HEENT: Oropharynx is moist. Poor dentition. Eye examination shows pink conjunctivae and white sclerae. Neck: Examination shows no obvious thyromegaly or thyroid tenderness. Cardiovascular: She sounds to be in a regular rate and rhythm. She has no obvious murmurs. She has no S3. She has no lower extremity edema. Chest: Examination is clear bilaterally. She has no increased work of breathing. Abdomen: Soft. Mild diffuse tenderness. No rebound or guarding. Skin: Warm and dry throughout without any rashes. Neurological: Moving all extremities well. She has no lateralizing deficits. Psychiatric: She is alert, oriented, pleasant. She has a normal mood and affect. PERTINENT DATA: She had a chest x-ray that showed extensive evidence of pulmonary edema. Her EKG from today demonstrated a rapid atrial fibrillation. Her lab data shows a white count of 6.4, hematocrit of 33, platelet count is 173,000. Her sodium is 135, potassium is 3.6, BUN 3, creatinine 0.4. She had a cardiac enzyme check which was negative. ASSESSMENT: Ms. Larsen is a 73-year-old female with a history of diverticulosis who seems to be presenting with diverticulitis. She had a new onset of atrial fibrillation. PLAN: We will check a TSH in the morning as well as an echocardiogram. I have initiated beta- blockers. Eventually, she will need an oral anticoagulant. Likely, we will use Eliquis at a dose of 5 mg b.i.d. Presently, she is on weight based Lovenox. cc: MD Jamal Hamilton MD
[2018-06-16] MEDS: ZOSYN 4.5 GM in NS 50 ML IV SCH ×2 (15:58→19:59)
[2018-06-16] MEDS: LOVENOX SUBQ SCH (15:58)
[2018-06-16] MEDS ORDERED: TYLENOL PO PRN (18:40)
[2018-06-16] MEDS: XANAX PO PRN (19:51)
[2018-06-16] MEDS: LOPRESSOR PO SCH (19:51)
[2018-06-16] MEDS ORDERED: SODIUM CHLORIDE 0.9% INJ SCH (22:00)
[2018-06-17] MEDS: ZOSYN 4.5 GM in NS 50 ML IV SCH ×4 (03:48→21:33)
[2018-06-17] MEDS: LOVENOX SUBQ SCH ×2 (03:48→15:26)
[2018-06-17] MEDS: LOPRESSOR PO SCH ×4 (03:48→19:40)
[2018-06-17 06:38] LABS: BASO# 0.01 X1000 (0.0-0.2); BASO% 0.2 % (0.0-0.8); EOS% 1.5 % (0.0-10.0); HEMATOCRIT 33.2 % (37.0-47.0); HEMOGLOBIN 11.1 g/dL (12.0-16.0); LYMPH# 0.95 X1000 (1.2-3.4); LYMPH% 14.4 % (20.5-51.1); MCH 29.4 PG (27-31); MCHC 33.4 g/dL (33-37); MCV 88.1 FL (81-99); MONO# 0.63 X1000 (0.11-0.59); MONO% 9.6 % (1.7-9.3); MPV 10.4 FL (7.4-10.4); NEUT# 4.89 X1000 (1.4-6.5); NEUT% 74.3 % (42.2-75.2); PLT 255 X1000 (130-400); RBC 3.77 XMIL (4.2-5.4); RDW 12.5 % (11.5-14.5); WBC 6.58 X1000 (4.8-10.8)
[2018-06-17 07:17] LABS: AGAP 14; ALB/GLOB RATIO 1.1; ALBUMIN 3.1 g/dL (3.5-5.0); ALKALINE PHOSPHATASE 83 U/L (32-104); BUN 4 mg/dL (8-22); CALCIUM 7.8 mg/dL (8.8-10.2); CHLORIDE 103 mmol/L (98-107); COSMO 272; CREATININE 0.3 mg/dL (0.5-0.9); ESTIMATED GFR > 60; GLUCOSE 87 mg/dL (70-104); GOT 28 U/L (10-30); GPT 78 U/L (10-36); MAGNESIUM 1.7 mg/dL (1.5-2.7); PHOSPHORUS 1.6 mg/dL (2.7-4.5); POTASSIUM 3.4 mmol/L (3.5-5.1); SODIUM 138 mmol/L (136-145); TCO2 21 mmol/L (25-35); TOTAL BILIRUBIN 0.32 mg/dL (0.20-1.00)
[2018-06-17] MEDS ORDERED: KLOR-CON PO ONE (07:40)
[2018-06-17] MEDS ORDERED: LASIX IV ONE (07:43)
[2018-06-17] MEDS ORDERED: POTASSIUM PHOSPHATE 30 MMOL in NS 250 ML IV ONE (07:44)
--- NOTE | 2018-06-17 07:44 | Diag Imaging Result Doc PS360 ---
CHEST-PORTABLE - 06/17/2018 INDICATION: SOB COMPARISON: 06/16/2018 FINDINGS: Lung volumes are much lower. There is little change in the diffuse interstitial infiltrates suggesting pulmonary edema. There are probably small pleural effusions. IMPRESSION: Much lower lung volumes. Accounting for this, there is little change from prior. Electronically signed by Guero Hunt 06/17/2018 7:42 AM
[2018-06-17] MEDS ORDERED: NS 100 ML ONE (08:10)
--- NOTE | 2018-06-17 08:19 | PROGRESS NOTE ---
DATE: 06/17/2018 SUBJECTIVE: She is not complaining today of abdominal pain or shortness of breath. Yesterday, she had an episode of fever. We asked for blood culture and urine culture that so far have been negative. She had an episode of atrial fibrillation RVR. Cardiology Department already evaluated this patient. She is on anticoagulation. This patient is stable today, a little bit of pulmonary edema on the x-ray. Potassium level is a little bit low as well as phosphorus, I will replace it. OBJECTIVE: Vital Signs: Temperature 99.5, pulse 93, respiratory rate 14, blood pressure 137/81, oxygen saturation 93 on 2 L of nasal cannula. HEENT: Head normocephalic. No trauma. PERRLA. Neck: Supple. No JVD. No masses. Central trachea. Chest: Clear to auscultation. No wheezing. There is some crepitus at the bases. Abdomen: Soft. Nontender. Nondistended. No hepatosplenomegaly. Positive bowel sounds. Extremities: No edema. No clubbing. No cyanosis. Neurological: The patient is alert and oriented x3. No focal deficits. LABORATORY: WBC 6.5, hemoglobin 11.1, hematocrit 33.2, and platelets 255,000. Sodium 138, potassium 3.4, chloride 103, bicarbonate 21, BUN 4, creatinine 0.3, glucose 87, calcium 7.8, and phosphorus 1.6. Total bilirubin 0.3, AST 28, ALT 78, alkaline phosphatase 883 and albumin 3.1. ASSESSMENT AND PLAN: 1. Severe acute diverticulitis on the sigmoid colon per CT scan. We will continue with antibiotics. She has been placed on Zosyn, and we will continue to monitor this patient closely. It looks like she has been having diverticulitis before. Surgery Department on board. The pain is much better. Actually, she is not complaining of pain. 2. New onset of atrial fibrillation with RVR. At this moment, the rate is controlled. It looks sinus. Cardiology Department on board. Continue with the same management. 3. Elevated liver function tests, likely probably related to shock liver and/or medication induced. Apparently, this patient was having low blood pressure and she received some pressors yesterday. Blood pressure has been stable. We will continue to monitor for now. LFTs are close to normal. 4. Sepsis. I am not quite sure if this patient really had septic shock. She was placed on vasopressor yesterday for a little bit of time. Blood pressure has been stable. Probably, the decrease of the blood pressure was related to the atrial fibrillation RVR, but is now controlled. Upon admission though, this patient was tachycardic, leukocytosis, normal lactate level, and she had a source of infection. Probably, this patient has sepsis or early sepsis but now seems to be stable. 5. Gastrointestinal prophylaxis with proton pump inhibitors. 6. Deep vein thrombosis prophylaxis. She has been placed on Lovenox twice a day due to her atrial fibrillation RVR. 7. Recent x-ray showed extensive diffuse bilateral interstitial infiltrate with probably pulmonary edema. IV fluids were stopped yesterday. She has been placed on a diet. We will continue with antibiotics and she will receive a low dose of Lasix today x1. 8. Hyponatremia resolved. 9. Hypokalemia with hypophosphatemia. I will replace it. cc: Jamal Corley MD
--- NOTE | 2018-06-17 08:37 | EKG Report ---
Test Performed on : 06/16/2018 08:23:24 AM Test Reason : elevated hr Blood Pressure : / mmHG Vent. Rate : 067 BPM Atrial Rate : 067 BPM P-R Int : 166 ms QRS Dur : 082 ms QT Int : 388 ms P-R-T Axes : 032 059 034 degrees QTc Int : 409 ms Normal sinus rhythm. Low voltage QRS Borderline ECG When compared with ECG of 16-JUN-2018 00:31, (Unconfirmed) Sinus rhythm. has replaced Atrial fibrillation. Vent. rate has decreased BY [address] no longer depressed in Inferior leads ST no longer depressed in Anterolateral leads Nonspecific T wave abnormality, improved in Inferior leads Unconfirmed Result
--- NOTE | 2018-06-17 08:48 | EKG Report ---
Test Performed on : 06/16/2018 00:31:06 AM Test Reason : ER Blood Pressure : / mmHG Vent. Rate : 186 BPM Atrial Rate : 187 BPM P-R Int : 000 ms QRS Dur : 076 ms QT Int : 264 ms P-R-T Axes : 000 067 -50 degrees QTc Int : 464 ms Atrial fibrillation. with rapid ventricular response. Low voltage QRS Nonspecific ST abnormality Abnormal QRS-T angle, consider primary T wave abnormality Abnormal ECG When compared with ECG of 13-JUN-2018 09:27, Significant changes have occurred Unconfirmed Result
[2018-06-17] MEDS: PROTONIX IV SCH ×2 (10:25→21:33)
--- NOTE | 2018-06-17 13:39 | CARDIOLOGY PROGRESS NOTE ---
DATE: 06/17/2018 SUBJECTIVE: Ms. Larsen has not had any episodes of atrial fibrillation, no palpitations overnight. PHYSICAL EXAMINATION: She has been afebrile, heart rate of 93, blood pressure 137/81.General: No acute distress. Cardiovascular: She is in a regular rate and rhythm. She has no murmurs no S3. She has no lower extremity edema. Chest: Clear bilaterally. No increased work of breathing. Abdomen: Soft. Mild diffuse tenderness. PERTINENT DATA: Sodium 138, potassium 3.4, BUN 4, creatinine 0.3. Her TSH is normal at 1.04. ASSESSMENT: Ms. Larsen is a 73-year-old female who presented with diverticulitis. She had an episode of atrial fibrillation, currently in sinus. PLAN: Echo is currently pending. TSH was normal. She is maintained on metoprolol 25 q.6. Doing well with weight based Lovenox. She may transition to Eliquis in the future when it is safe from an operative standpoint. cc: Andrea Dahl MD
[2018-06-17] MEDS ORDERED: MELATONIN PO PRN (18:48)
--- NOTE | 2018-06-17 18:56 | PROGRESS NOTE ---
DATE: 06/17/2018 SUBJECTIVE: Ms. Jennifer Larsen looks much improved today in the ICU. She is awake and cooperative. She seems comfortable. She is having no work of breathing. Her heart rate is 101, blood pressure 144/85, O2 saturation 96%. Her T-max is 99 degrees. She is on IV antibiotics for diverticulitis. LABORATORY DATA: Her white blood cell count is normal. Hematocrit is 33%. Electrolytes are essentially normal with a BUN of 4, creatinine is 0.3. OBJECTIVE: On examination of her abdomen, she is mostly soft. She has some mild tenderness in the left lower quadrant, but I think it is improved. I do feel that her diverticulitis is responding to antibiotics. Certainly we would like to do her low anterior colon resection electively to try to avoid a colostomy if possible. cc: Chica López MD
--- NOTE | 2018-06-17 21:42 | ECHO REPORT ---
ORDER DATE: 06/16/2018 MEASUREMENTS: Left ventricular internal diameter diastole 4.0, left ventricular internal diameter in systole 2.9, septal thickness 1.1, posterior wall thickness 1.0, left atrium 3.3, aortic root 3.1. SUMMARY: 1. Technically difficult study due to limited acoustic window quality. 2. Aortic valve is sclerotic but appears to open adequately on 2-dimensional images. Peak gradient across aortic valve is 10-15 mmHg. Mitral and tricuspid valves are without evidence of structural abnormality while pulmonic valve is not well demonstrated. There is mild to moderate mitral regurgitation and mild tricuspid regurgitation. Estimated systolic PA pressure by Doppler is 50 to 55 mmHg suggesting moderate pulmonary hypertension. Aortic root is normal in size. 3. Normal left ventricular dimensions demonstrated. Estimated left ejection fraction appears to be greater than 60%. No regional wall abnormality can be appreciated. Doppler demonstrates a mild resting gradient in left ventricular outflow tract of approximately 10 mmHg. Left atrium, right atrium, right ventricle are normal in size with grossly preserved right ventricular systolic function. 4. No pericardial effusion. 5. Appearance of inferior vena cava suggests normal central venous pressure. cc: MD Jamal Weiss MD
[2018-06-17] MEDS: XANAX PO PRN (22:12)
[2018-06-18] MEDS: LOPRESSOR PO SCH ×3 (02:59→20:40)
[2018-06-18] MEDS: ZOSYN 4.5 GM in NS 50 ML IV SCH (03:02)
[2018-06-18] MEDS: LOVENOX SUBQ SCH ×2 (04:02→20:40)
[2018-06-18 05:28] LABS: BASO# 0.03 X1000 (0.0-0.2); BASO% 0.5 % (0.0-0.8); EOS# 0.18 X1000 (0.0-0.7); EOS% 2.9 % (0.0-10.0); HEMATOCRIT 33.9 % (37.0-47.0); HEMOGLOBIN 11.6 g/dL (12.0-16.0); LYMPH# 1.79 X1000 (1.2-3.4); LYMPH% 28.5 % (20.5-51.1); MCH 29.5 PG (27-31); MCHC 34.2 g/dL (33-37); MCV 86.3 FL (81-99); MONO# 0.61 X1000 (0.11-0.59); MONO% 9.7 % (1.7-9.3); NEUT# 3.66 X1000 (1.4-6.5); NEUT% 58.4 % (42.2-75.2); PLT 285 X1000 (130-400); RBC 3.93 XMIL (4.2-5.4); RDW 12.2 % (11.5-14.5); WBC 6.27 X1000 (4.8-10.8)
[2018-06-18 05:48] LABS: AGAP 13; ALB/GLOB RATIO 1.1; ALBUMIN 3.2 g/dL (3.5-5.0); ALKALINE PHOSPHATASE 78 U/L (32-104); BUN 4 mg/dL (8-22); CALCIUM 7.5 mg/dL (8.8-10.2); CHLORIDE 99 mmol/L (98-107); COSMO 272; CREATININE 0.4 mg/dL (0.5-0.9); ESTIMATED GFR > 60; GLUCOSE 95 mg/dL (70-104); GOT 18 U/L (10-30); GPT 59 U/L (10-36); MAGNESIUM 1.5 mg/dL (1.5-2.7); PHOSPHORUS 2.5 mg/dL (2.7-4.5); POTASSIUM 3.1 mmol/L (3.5-5.1); SODIUM 138 mmol/L (136-145); TCO2 26 mmol/L (25-35); TOTAL BILIRUBIN 0.48 mg/dL (0.20-1.00)
[2018-06-18] MEDS ORDERED: KLOR-CON PO ONE (07:32)
--- NOTE | 2018-06-18 08:36 | PROGRESS NOTE ---
DATE: 06/18/2018 SUBJECTIVE: This patient is feeling better. Minimal abdominal pain at the level of the left lower quadrant. She is tolerating diet. I will remove the Jeter catheter. I have requested an evaluation by OT and physical therapy. I will continue with antibiotics for now. She has been transferred to a stepdown unit. She has been complaining of some nasal congestion and I will continue her home medication. She used to be on Flonase. PHYSICAL EXAMINATION: Vital Signs: Temperature 97.6 degrees, pulse 74, respiratory rate 20, blood pressure 140/72, oxygen saturation 94% on 2 L of nasal cannula. HEENT: Head normocephalic. No trauma. PERRLA. Neck: Supple. No JVD. No masses. Central trachea. Chest: Clear to auscultation. No wheezing. Some crepitus at the bases. Abdomen: Soft. Mild tenderness to palpation at the level of the left lower quadrant. Nondistended. Positive bowel sounds. Extremities: No edema. No clubbing. No cyanosis. Neurological Examination: The patient is alert and oriented x3. No focal neurological deficits. LABORATORY DATA: WBCs 6.2, hemoglobin 11.6, hematocrit 33.9, platelets 285,000. Sodium 138, potassium 3.1, chloride 99, bicarbonate 26, BUN 4, creatinine 0.4, glucose 95, calcium 7.5. Total bilirubin 0.48, AST 18, ALT 59, alkaline phosphatase 78, albumin 3.2. ASSESSMENT AND PLAN: 1. Severe acute diverticulitis of the sigmoid colon per CT scan. We will continue with antibiotics. She has been placed on Zosyn. Continue to monitor closely. It looks like she has been having diverticulitis before. Surgery department on board. Probably, this patient will have a partial colectomy in the future but at this time, she is responding to treatment. 2. New onset of atrial fibrillation with rapid ventricular response. At this moment, the rate is controlled, sinus rhythm. Cardiology on board. Continue with the same management. She is getting full anticoagulation with Lovenox. Probably, we will switch it to Eliquis if surgery department is not going to do any kind of intervention at this time. 3. Elevated liver function tests. Almost normal today. Likely related to shock liver and/or medication induced. 4. Sepsis. I am not quite sure if this patient really had septic shock. She was placed on vasopressors a couple days ago for a little bit of time but, also, she was having atrial fibrillation with rapid ventricular response which probably can cause low blood pressure. Upon admission, though, this patient was tachycardic and she had leukocytosis, normal lactate level, and she does have a source of infection. 5. Gastrointestinal prophylaxis with proton pump inhibitors. 6. Deep vein thrombosis prophylaxis. She has been placed on Lovenox twice a day because of her atrial fibrillation with rapid ventricular response. 7. Recent x-ray showed extensive diffuse bilateral interstitial infiltrate with probably pulmonary edema. She is no longer getting intravenous fluids. She received a dose of Lasix yesterday. We have a negative balance of 1.7 L. She is not complaining of shortness of breath today but we will monitor this patient. 8. Hyponatremia, resolved. 9. Hypokalemia. I will replace the potassium today. 10. Hypophosphatemia, looks better today. We will monitor. cc: Jamal Corley MD
[2018-06-18] MEDS: ZOSYN 4.5 GM in NS 100 ML IV SCH ×3 (08:42→20:40)
[2018-06-18] MEDS: FLONASE NAS SCH (09:11)
[2018-06-18] MEDS: PROTONIX IV SCH ×2 (09:11→22:04)
--- NOTE | 2018-06-18 13:10 | CARDIOLOGY PROGRESS NOTE ---
DATE: 06/18/2018 SUBJECTIVE: Ms. Larsen reports she is doing much better today. She looks more alert. She is having some issues with diarrhea. OBJECTIVE: Vital Signs: Physically, she is afebrile. Her heart rates appear to be in the 90s to low 100s. Her blood pressure most recently is 155/86. General: Generally she is in no acute distress. Cardiovascular: She is in a regular rate and rhythm. She has no murmurs, no lower extremity edema. Chest: Clear bilaterally. No increased work of breathing. Abdomen: Soft. Mild diffuse tenderness to palpation. PERTINENT DATA: She has a white count of 6.2, her hematocrit is 33, platelet count is 285. Her sodium is 138, potassium 3.1. BUN 4, creatinine 0.4. ASSESSMENT: Ms. Larsen is a 73-year-old female with diverticulitis, who presented with atrial fibrillation. PLAN: At this point, I do not have any further recommendations. I have changed her metoprolol over to 50 b.i.d. When safe from a surgical standpoint, I believe she could be discharged on 5 mg b.i.d. of Eliquis, which would be the appropriate dose for her age, weight and kidney function. I will make a follow up plan to see me in at some point in the next month to follow up on her atrial fibrillation. She did have an echocardiogram during this hospitalization that demonstrated a normal ejection fraction. cc: Andrea Dahl MD
[2018-06-18] MEDS: XANAX PO PRN ×2 (14:03→21:52)
[2018-06-19] MEDS: ZOSYN 4.5 GM in NS 100 ML IV SCH ×2 (03:58→10:40)
[2018-06-19 06:54] LABS: AGAP 13; ALBUMIN 3.1 g/dL (3.5-5.0); ALKALINE PHOSPHATASE 72 U/L (32-104); BUN 5 mg/dL (8-22); CALCIUM 8.1 mg/dL (8.8-10.2); CHLORIDE 102 mmol/L (98-107); COSMO 278; CREATININE 0.4 mg/dL (0.5-0.9); ESTIMATED GFR > 60; GLUCOSE 89 mg/dL (70-104); GOT 20 U/L (10-30); GPT 46 U/L (10-36); MAGNESIUM 1.6 mg/dL (1.5-2.7); POTASSIUM 2.8 mmol/L (3.5-5.1); SODIUM 141 mmol/L (136-145); TCO2 26 mmol/L (25-35); TOTAL BILIRUBIN 0.31 mg/dL (0.20-1.00); TOTAL PROTEIN 6.1 g/dL (6.3-8.3)
[2018-06-19] MEDS: LOVENOX SUBQ SCH (08:09)
[2018-06-19] MEDS: LOPRESSOR PO SCH (08:09)
[2018-06-19] MEDS: FLONASE NAS SCH (08:09)
[2018-06-19] MEDS ORDERED: KLOR-CON PO ONE (08:23)
[2018-06-19] MEDS: PROTONIX IV SCH (10:40)
[2018-06-19 11:47] VITALS: BP 138/72
--- NOTE | 2018-06-19 11:51 | DISCHARGE SUMMARY ---
ADMISSION DATE: 06/12/2018 DISCHARGE DATE: 06/19/2018 PRIMARY CARE PHYSICIAN: Dr. George Landis. CONSULTATIONS: 1. Dr. King with General Surgery. 2. Dr. Dahl with Cardiology. PROCEDURES AND FINDINGS: 1. Abdominal pelvis CT, 06/12/2018, severe acute diverticulitis of the sigmoid colon. Recommended follow-up CT after the patient has resolved. 2. Chest x-ray 06/16/2018 reveals extensive pulmonary edema. 3. Echocardiogram 06/16/2017 reveals ejection fraction greater than 60%. 4. EKG 06/13/2018 reveals sinus tachycardia. 5. EKG 06/16/2018 reveals atrial fibrillation with RVR. DISCHARGE DIAGNOSES: 1. Severe acute diverticulitis of the sigmoid colon per CT scan. She will continue with p.o. antibiotics namely Augmentin. She has completed a course of IV antibiotics inpatient. General Surgery has evaluated this patient, and she will follow up with Dr. King in 3 weeks to discuss partial colectomy. 2. New onset of atrial fibrillation with RVR. This patient required a Cardizem drip and then IV metoprolol. She did convert to sinus rhythm. Cardiology evaluated this patient. She will be discharged with p.o. metoprolol and Eliquis for anticoagulation, and follow up with Cardiology within 1 month. 3. Elevated liver function test. They are now almost back to normal. This is likely related to shock liver and/or medication induced. 4. Sepsis. Ms Larsen required vasopressors due to hypotension although she was also having atrial fibrillation with RVR at this time. She has maintained on normal lactate level. This has resolved and she will continue with p.o. antibiotics. 5. Pulmonary edema per chest x-ray. She received IV Lasix while inpatient. She has clinically improved, and no longer complaining of any shortness of breath. 6. Hyponatremia, resolved. Last sodium of 141. 7. Hypokalemia. This has been replaced. Last potassium 2.8. 8. Hypophosphatemia. This has also been replaced with last phosphate 2.5. HOSPITAL COURSE: Ms. Larsen is a 73-year-old female who presented to the emergency room complaining of a hernia that she was interested in getting removed. She was also complaining of constipation, chills, and nausea. Evaluation in the ER, she was found to have a low-grade fever with a temperature of 99.3 degrees as well as tachycardic and tenderness in the periumbilical region. [place] [id number]. CT scan of the abdomen and pelvis revealed acute diverticulitis in the left lower quadrant and a hiatal hernia. Impression was severe acute diverticulitis of the sigmoid colon. Ms. Larsen was treated with IV fluids and IV Zosyn, and Flagyl as well as omeprazole. Dr. King with General Surgery was consulted and previous treatment continued. Ms Larsen had an episode of atrial fibrillation with RVR with a rate at about 186 and was treated with Cardizem drip and then IV metoprolol. She was evaluated by Cardiology and has now converted to sinus rhythm. She will be discharged with p.o. metoprolol, and will follow up with Cardiology in 1 month. She also developed pulmonary edema and required IV Lasix. This is clinically improved, and patient is no longer requiring Lasix. She will be discharged with Eliquis 5 mg p.o. b.i.d. for anticoagulation regarding her atrial fibrillation. She is now stable for discharge to home with home health. Last vital signs, temperature 98.1 degrees, heart rate 89, respiratory rate 17, blood pressure 149/73, and O2 saturation 99% on room air. LABORATORY: WBC 6.2, hemoglobin 11.6, hematocrit 33.9, and platelets 285,000. Sodium 141, potassium 2.8, BUN 5, and creatinine 0.4, AST 20, ALT 46, and alkaline phosphatase 72. DISCHARGE MEDICATIONS: Per Dr. Levine. 1. Xanax 1 mg p.o. b.i.d. p.r.n. anxiety. 2. Flonase 1 spray nasal daily. 3. Melatonin 5 mg p.o. at bedtime p.r.n. insomnia. 4. Augmentin 875-125 1 each p.o. q.8 hours. 5. Eliquis 5 mg p.o. b.i.d. 6. Metoprolol 50 mg p.o. b.i.d. 7. Omeprazole 40 mg p.o. daily. 8. Witch Julienne 1 each topically 5 times a day. DISCHARGE INSTRUCTIONS: Please complete full course of antibiotics as prescribed. Return to the emergency room for any chest pain, shortness of breath, or worsening of symptoms. Please follow up with Dr. Fernando, General Surgery in 3 weeks after discharge for future surgical planning. Please follow up with Dr. Dahl with [facility] in 1 month. The patient will be discharged to home with home health. Dictated by CATRINA De La Garza for Jamal Corley MD cc: MD Dr. Hesham Valle Dr., MD Jason R. Seale, MD
== END 2018-06-19 13:45 | disposition home health service (06) | DRG 391 ==
LOC: P.ED 16:30 → SUATTDRO 21:37 → P.MEDSURG 21:37 → P.ICU 06-16 01:45 → ICU 06-16 13:41 → 3S 06-18 11:09
PROVIDERS: ATTEND Internal Medicine
CPT/HCPCS: 36415; 71010; 71045; 74177; 80053; 81001; 82150; 82550; 82805; 83605; 83690; 83735; 84100; 84443; 84484; 85025; 87040; 87088; 93005; 93010; 93306; 96374; 96375; 97162; 97165; 97530; 97535; 99285; A9270; C9113; J0131; J0282; J1160; J1650; J1940; J2270; J2405; J2543; J3475; J7030; J7040; J7050; Q9967; S0030; S0164